=== PATIENT | female | born 1960 | race Caucasian/White ===

== ENCOUNTER 2017-06-12 17:18 | Observation (INO) ==
[2017-06-12] MEDS ORDERED: ASPIRIN 81 MG CHEWABLE TABLET PO ONE (17:37)
[2017-06-12] MEDS ORDERED: SALINE FLUSH 10ml SYRINGE IVF PRN (17:37)
--- OUTSIDE RECORDS SUMMARY | 2017-06-12 17:44 | External Medical Summary ---
:1960 [facility] Organization [facility] Address [address] [place] [address] Care Team Providers Name Role Phone KATHERINE HERNANDEZ Primary Care Physician Unavailable Encounter [facility] [id number] Date(s): 08/23/15 - 08/23/15 [facility] [address] [place] [id number] Discharge Disposition: Home Attending Physician: LUPILLO Ventura MD Admitting Physician: LUPILLO Ventura MD Referring Physician: [id number] -KATHERINE HERNANDEZ Vital Signs No data available for this section Problem List Diagnosis Diagnosis Type Effective Dates Health Clinical Informant Status Service Osteoarthritis of Discharge 08/23/15 Non-Specified basilar joint of Diagnosis thumb Injury of Discharge 08/23/15 Non-Specified intermetacarpal Diagnosis ligament of right hand Allergies, Adverse Reactions, Alerts Substance Reaction Severity Status amoxicillin mouth sores, rash Active Rash Demerol HCl Nausea or vomiting Active Dilaudid Rash Active Lortab Nausea or vomiting Active morphine Rash Active Fever Stadol Nausea or vomiting Active sulfa drugs Nausea or vomiting Active traMADol Nausea or vomiting Active Medications No Known Medications Results No data available for this section Immunizations No data available for this section Procedures Procedure Date Related Diagnosis Body Site Trapeziectomy Arthroplasty Suture Suspension 08/23/15 Right Thumb Carpometacarpal partial hysterectomy - required blood transfusion 2010 after cervical fusion 2009 diag lap for ovarian cysts x 5 1987 was last 1987 surgery x 3 Social History No data available for this section Assessment and Plan No data available for this section
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
--- OUTSIDE RECORDS SUMMARY | 2017-06-12 17:44 | External Medical Summary | Continuity of Care Document ---
:1960 Author Organization [facility] Care Team Providers Name Role Phone [employer] Unavailable Unavailable Problems Problem Status Onset Classification Date Comments Source Date Reported Osteoarthrosis of 08/23/19 Diagnosis 08/27/2015 [place] the carpometacarpal 16 Medical joint of the thumb [place], (disorder) Inc[facility] Injury of ligament 08/23/19 Diagnosis 08/27/2015 [place] of hand (disorder) [address] [place] [address], Inc. Medications Medication Details Route Status Patient Ordering Order Source Instructions Provider Date No Known No known Active [place] Medications medications [facility] Allergies, Adverse Reactions, Alerts Substance Category Reaction Severity Reaction Status Date Comments Source type Reported Amoxicillin Assertion mouth Drug [place] sores, allergy Medical rash, [place], Rash Inc[facility] Meperidine Assertion Nausea or Drug [place] vomiting [facility] Hydromorphone Assertion Rash Drug [place] [facility] Acetaminophen / Assertion Nausea or Drug [place] Hydrocodone vomiting [facility] Morphine Assertion Rash, Drug [place] Fever [facility] Butorphanol Assertion Nausea or Drug [place] vomiting [facility] sulfa drugs Assertion Nausea or Drug [place] vomiting [facility] Tramadol Assertion Nausea or Drug [place] vomiting [facility] Encounters Location Location Encounter Encounter Reason Attending ADM DC Status Source Details Type Number For Provider Date Date Visit [facility] [id number] Amb Surgery [id number] LUPILLO [place] 08/22 08/22 Active [place] /2015 [facility] [place] [facility] [id number] KATHERINE 08/22 08/23 [place] Medical Surgery HERNANDEZ /2015 [facility] Inc[facility] Procedures Procedure Code Date Perfomer Comments Source Trapeziectomy 08/23/2015 [place] Arthroplasty Suture Medical Suspension Right Thumb [place] Carpometacarpal partial hysterectomy - 05/05/2010 [place] required blood Medical transfusion after [place] cervical fusion 05/05/2009 [facility] diag lap for ovarian 05/05/1987 [place] cysts x 5 1988 was Medical [email or web address] surgery [place], [facility]. x 3 [facility].
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
--- OUTSIDE RECORDS SUMMARY | 2017-06-12 17:46 | External Medical Summary | Continuity of Care Document ---
:1960 Author Organization [facility] Allergies Active Description Code Type Severity Reaction Onset Reported/ Identified Relationship Clinical to Patient Status Yes AMOXICILLIN 92424 Drug N/A N/A 18891 Aller 1 gy Yes DEMEROL 12287 Drug N/A N/A 40639 Aller 2 gy Yes DILAUDID 73512 Drug N/A N/A 23121 Aller 0 gy Yes LORTAB 21959 Drug N/A N/A 64798 Aller 6 gy Yes MORPHINE 70829 Drug N/A N/A SULFATE 12598 Aller 0 gy Yes STADOL 95841 Drug N/A N/A Aller gy Yes SULFA Drug N/A N/A Aller gy [place] TRAMADOL HCL 01637 Drug N/A N/A Aller gy Medications There is no data. Problems There is no data. Procedures There is no data. Results There is no data. Encounters ACCT No. Visit Discharge Status Pt. Type Provider Facility Loc./Unit Complaint Date/Time [id number] 07/06/2013 07/06/2013 CLS Outpatient 10:03:00 23:59:59 [id number] 03/31/2013 03/31/2013 CLS Outpatient 08:59:00 23:59:59 [id number] 05/27/2017 05/27/2017 DIS Outpatient [id number] 10:46:35 10:46:35 [id number] 04/08/2017 04/08/2017 CLS Outpatient [id number] 08:09:09 23:59:59 [id number] 04/07/2017 04/07/2017 DIS Outpatient [id number] 09:21:07 09:21:07 [id number] 04/07/2017 04/07/2017 DIS Outpatient [id number] 09:17:27 09:17:27 [id number] 04/07/2017 04/07/2017 DIS Outpatient [id number] 08:54:02 08:54:02 [id number] 04/07/2017 04/07/2017 DIS Outpatient [id number] 07:51:23 07:51:23 [id number] 04/07/2017 04/07/2017 DIS Outpatient [id number] 07:49:46 07:49:46 [id number] 04/07/2017 04/07/2017 DIS Outpatient [id number] 07:49:45 07:49:45 [id number] 04/07/2017 04/07/2017 DIS Outpatient [id number] 07:49:32 07:49:32 [id number] 04/07/2017 04/07/2017 DIS Outpatient [id number] 07:48:03 07:48:03 [id number] 04/07/2017 04/07/2017 DIS Outpatient [id number] 07:47:47 07:47:47 [id number] 04/07/2017 04/07/2017 DIS Outpatient [id number] 07:46:19 07:46:19 [id number] 04/07/2017 04/07/2017 DIS Outpatient [id number] 07:39:19 07:39:19 [id number] 04/07/2017 04/07/2017 DIS Outpatient [id number] 07:37:52 07:37:52 [id number] 04/07/2017 04/07/2017 DIS Outpatient [id number] 07:35:46 07:35:46 [id number] 04/07/2017 04/07/2017 DIS Outpatient [id number] 07:34:12 07:34:12 [id number] 04/07/2017 04/07/2017 DIS Outpatient [id number] 07:34:11 07:34:11 [id number] 03/31/2017 03/31/2017 DIS Outpatient [id number] 15:30:51 15:30:51 [id number] 03/31/2017 03/31/2017 DIS Outpatient [id number] 15:30:34 15:30:34 [id number] 03/31/2017 03/31/2017 DIS Outpatient [id number] 14:45:24 14:45:24 [id number] 03/31/2017 03/31/2017 DIS Outpatient [id number] 14:45:09 14:45:09 [id number] 03/25/2017 03/25/2017 CLS Outpatient [id number] 15:29:08 23:59:59 [id number] 03/25/2017 03/25/2017 CLS Outpatient [id number] 15:28:55 23:59:59 [id number] 03/25/2017 03/25/2017 CLS Outpatient [id number] 15:27:16 23:59:59 [id number] 03/25/2017 03/25/2017 CLS Outpatient [id number] 15:26:55 23:59:59 [id number] 04/07/2017 Document [id number] 07:50:00 Registration 0750
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
[2017-06-12] MEDS: NITROGLYCERIN 0.4 MG SUBLINGUAL TABLET SL PRN ×2 (17:51→17:56)
[2017-06-12] MEDS ORDERED: NS 1,000 ML IV ONE (18:13)
--- NOTE | 2017-06-12 19:00 | Emergency Department Report ---
Chest Pain HPI - General Chief Complaint: Chest Pain Stated Complaint: cp, uncomfotable feeling in stomach Time Seen by Provider: 06/12/17 17:37 Source: patient Limitations: no limitations - History of Present Illness HPI narrative: patient is a 56 yr old female who presents to the emergency room today for evaluation of acute chest pain with radiation. Patient states that she has had upper respiratory infection and coughing intermittently for the past 2 months. She reports over the past few days she has had increasing substernal chest pain that radiates up into the right jaw, and right shoulder. At times this pain is severe in nature and wakes her up from sleep. She does report that when the pain radiates into the arm. It causes her right arm to feel numb. He also reports having epigastric pain accompanied with nausea. It is a dull ache. To be tachycardic on examination at 111, afebrile. Chest pressure rated 7-8 out of 10 initially. MD complaint: chest pain Occurred At: home Onset (ago): day(s) Duration: intermittent Onset: during rest Pain location: epigastric Severity: moderate Severity scale (1-10): 8 Quality: tightness, heaviness Pain radiation: RUE Relieving factors: nitroglycerin Exacerbating factors: nothing Context: recent illness Associated symptoms: nausea, vomiting Aspirin Today: provided by ED Nitro Today: provided by ED Treatments prior to arrival chest pain: none - Related Data Home Medications Medication Instructions Recorded Confirmed SUMAtriptan succinate [Sumatriptan 100 mg PO PRN PRN #0 10/18/11 06/12/17 Succinate] Claritin (Loratadine) 10 mg tablet 10 mg PO Q24H 12/02/16 06/12/17 Glucophage (metformin) 500 mg 500 mg PO .QD tab 12/02/16 06/12/17 tablet liothyronine 5 mcg tablet 10 mcg PO .QD tab 12/02/16 06/12/17 sumatriptan 4 mg/0.5 mL 3 mg SQ Q1H PRN 12/02/16 06/12/17 subcutaneous pen injector ALPRAZolam [Xanax 0.25 mg] 0.125 mg PO Q8HR 06/12/17 06/12/17 Fluticasone Nasal [place] [Flonase] 1 spray EA NOSTRIL PRN 06/12/17 06/12/17 Levothyroxine Tab [Synthroid] 100 mcg PO ACB 06/12/17 06/12/17 Naproxen [Naprosyn] 500 mg PO Q6HR 06/12/17 06/12/17 Zonisamide [Zonegran] 100 mg PO DAILY 06/12/17 06/12/17 Previous Rx's Medication Instructions Recorded Albuterol Sulfate [Proair Hfa] 1 puff INH Q4H PRN 14 Days #1 06/26/16 inhaler Allergies Allergy/AdvReac Type Severity Reaction Status Date / Time acetaminophen [From Lortab] Allergy Verified 05/01/17 18:56 amoxicillin Allergy Verified 05/01/17 18:56 butorphanol [From Stadol] Allergy Verified 05/01/17 18:56 hydrocodone [From Lortab] Allergy Verified 05/01/17 18:56 hydromorphone [From Dilaudid] Allergy Verified 05/01/17 18:56 Sulfa (Sulfonamide Allergy Verified 05/01/17 18:56 Antibiotics) tramadol Allergy Verified 05/01/17 18:56 demoral Allergy Uncoded 05/01/17 18:56 morphone Allergy Uncoded 05/01/17 18:56 Review of Systems All systems: reviewed and negative except as stated Cardiovascular: Reports: chest pain PFSH Patient Stated Medical History Migraine Yes Other HEENT Yes: inner ear crystals get off-balanced Bronchitis Yes: hx Gastroesophageal Reflux Yes Disease Hiatal Hernia Yes Hx Urinary Tract Infection Yes: hx Depression Yes Clinic Medical History (Last Reviewed 05/01/17 @ 18:44 by Chani Carrillo LPN) GERD (gastroesophageal reflux disease) (Chronic Medical) Leatha's disease (Chronic Medical) Hormone replacement therapy (HRT) (Chronic Medical) Migraine (Chronic Medical) UTI (urinary tract infection) (Chronic Medical) "Pre-Diabetes" Anxiety Surgical History: * X3. *Cervical C4,5. *Right thumb joint. * Partial Hysterectomy. *Ovarian cyst Family History: Family History (Last Reviewed 05/01/17 @ 18:45 by Chani Carrillo LPN) Father , [place] related, age 76 Brain tumor Mother Smoker COPD (chronic obstructive pulmonary disease) - Social History Smoking status: Never smoker Substance use type: does not use Alcohol intake frequency: does not drink Housing: house Household members: spouse Social history: PCP Dr Guzman Physical Exam - Limitations Limitations: no limitations - Normal Exams: Head:: Normocephalic without trauma Eyes:: Pupils are PERRLA w/ EOMI Neck:: Full range of motion Chest/Respirations:: Clear all forman Cardiovascular:: Regular rate and rhythm, Pulses 2+ all extremities Abdomen:: Bowel sounds positive - Abdominal Exam Abdominal exam: Present: tenderness (the gastric) Course Vital Signs Temperature 98.1 F 06/12/17 17:20 Pulse Rate 106 H 06/12/17 17:20 Respiratory Rate 20 06/12/17 17:20 Blood Pressure 173/97 H 06/12/17 17:20 Pulse Oximetry 97 06/12/17 17:20 Temperature 98.1 F 06/12/17 17:20 Pulse Rate 103 H 06/12/17 18:00 Respiratory Rate 20 06/12/17 17:20 Blood Pressure 111/70 06/12/17 18:00 Pulse Oximetry 97 06/12/17 17:20 Chest Pain - [facility] Narrative Medical decision making narrative: 1839- Spoke with Jill Cronin APRN with Dr Christina. Stressed history, present illness, overall cardiac concerns. She agrees and accepts patient for outpatient observation for serial troponins and further cardiac rule out. Chest pain, decreased to 1/10 following nitroglycerin. Blood pressure dropped approximately 50-60 points systolic. All labs, x-ray and EKG. Overall concerned with chest pain with radiation. She is agreement to be admitted for further workup - Medical Records Data Attestation: I reviewed the patient's medical records. - Lab Data Attestation: I reviewed the patient's lab results. Result diagrams: 06/12/17 17:46 06/12/17 17:46 Lab Results 06/12/17 06/12/17 Range/Units 17:46 17:46 WBC 7.9 (4.5-11.0) T/MM3 RBC 5.08 (4.00-5.20) M/MM3 Hgb 14.4 (12-16) GM/DL Hct 42.8 (36-46) % MCV 84.3 (80-100) UM3 MCH 28.3 (26-34) UUG MCHC 33.6 (31-37) GM/DL RDW Std Deviation 42.0 (36.9-50.2) FL Plt Count 292 (130-400) T/MM3 MPV 10.8 (9.4-12.4) UM3 Immature Gran % (Auto) 0.1 (0.0-0.5) % Neut % (Auto) 53.0 (33-66) % Lymph % (Auto) 31.9 (23-45) % [place] % (Auto) 9.1 H (0-9.0) % Eos % (Auto) 5.1 H (0-4) % Baso % (Auto) 0.8 (0-2) % Neut # (Auto) 4.2 (1.8-7.7) T/MM3 Lymph # (Auto) 2.5 (1-4.8) T/MM3 [place] # (Auto) 0.7 (0-0.8) T/MM3 Eos # (Auto) 0.4 (0-0.5) T/MM3 Baso # (Auto) 0.1 (0-0.2) T/MM3 Abs Immat Gran (auto) 0.01 (0.00-0.03) T/MM3 Turbidity < 20 (0-20) Sodium 145 H (134-144) MEQ/L Potassium 4.2 (3.6-5) MEQ/L Chloride 108 H (98-107) MEQ/L Carbon Dioxide 24 (22-30) MEQ/L Anion Gap 13 (5-15) MEQ/L BUN 18.0 H (7-17) MG/DL Creatinine 0.7 (0.7-1.2) MG/DL GFR Calculation 87 BUN/Creatinine Ratio 26 (6-26) RATIO Glucose 116 H (65-110) MG/DL Calculated Osmolality 282 H (261-280) MOSM/KG Calcium 10.0 (8.4-10.2) MG/DL Icterus Index < 2 (0-7) Troponin I < 0.012 (0-0.12) ng/ml B-Natriuretic Peptide 30.1 (0-175) pg/mL Specimen Hemolysis 21 (0-25) Disposition Clinical Impression: Chest pain Qualifiers: Chest pain type: chest pain due to myocardial ischemia Ischemic chest pain type : unspecified angina pectoris type Qualified Code(s): I20.9 - Angina pectoris, unspecified Disposition[place] [facility] [place]: Stable Prescriptions: No Action SUMAtriptan succinate [Sumatriptan Succinate] 100 mg PO PRN PRN #0 PRN Reason: Migraine Headache Levothyroxine Tab [Synthroid] 100 mcg PO ACB ALPRAZolam [Xanax 0.25 mg] 0.125 mg PO Q8HR Albuterol Sulfate [Proair Hfa] 1 puff INH Q4H PRN 14 Days #1 inhaler PRN Reason: WHEEZING Naproxen [Naprosyn] 500 mg PO Q6HR Fluticasone Nasal [place] [Flonase] 1 spray EA NOSTRIL PRN Zonisamide [Zonegran] 100 mg PO DAILY sumatriptan 4 mg/0.5 mL subcutaneous pen injector 3 mg SQ Q1H PRN PRN Reason: Migraine Headache liothyronine 5 mcg tablet 10 mcg PO .QD tab Claritin (Loratadine) 10 mg tablet 10 mg PO Q24H Glucophage (metformin) 500 mg tablet 500 mg PO .QD tab Referrals: Bg Guzman DO [Family Provider] - Time of Disposition: 18:40 - Seen By: mychal
[2017-06-12 19:49] VITALS: BMI 25.5
[2017-06-12] MEDS ORDERED: FLUTICASONE NASAL SPRAY 50mcg EA NOSTRIL SCH (20:00)
[2017-06-12] MEDS ORDERED: LORATADINE 10 MG TABLET PO SCH (20:00)
[2017-06-13] MEDS: ALPRAZolam 0.25 MG TABLET PO SCH ×2 (00:25→08:45)
[2017-06-13] MEDS: LIOTHYRONINE 5 MCG TABLET PO SCH ×2 (06:11→08:43)
[2017-06-13] MEDS ORDERED: LEVOTHYROXINE 100 MCG TABLET PO SCH (06:30)
[2017-06-13 07:27] VITALS: BP 109/92; RESP 16; TEMP 98.3; O2SAT 96
--- NOTE | 2017-06-13 08:00 | XRay Report ---
INDICATION: chest pain, coughing PROCEDURE: CHEST 2-VIEWS UPRIGHT (PA & LAT) Encounter: Initial COMPARISON: None FINDINGS: The lungs are clear without evidence of focal abnormal airspace opacity. There is no pleural effusion or pneumothorax. The heart size, mediastinal contours and pulmonary vascularity are within normal limits. Cervical spine fusion hardware. IMPRESSION: No acute cardiopulmonary disease. .
[2017-06-13] MEDS ORDERED: ASPIRIN 81 MG CHEWABLE TABLET PO SCH (09:00)
[2017-06-13] MEDS ORDERED: ZONISAMIDE 100 MG CAPSULE PO SCH (09:00)
--- NOTE | 2017-06-13 10:25 | Cardiology History & Physical ---
History of Present Illness Chief complaint: chest pain HPI: Alma Delia is a 56 year old female who denies cardiac disease but has a history of HLD and DM type II who presented to the ED for evaluation of acute chest pain with radiation. She states that she has had upper respiratory infection and coughing intermittently for the past 2 months. She reports over the past few days she has had increasing substernal chest pain that radiates up into the right jaw, and right shoulder. At times this pain is severe in nature and wakes her up from sleep. She does report that when the pain radiates into the arm. It causes her right arm to feel numb. He also reports having epigastric pain accompanied with nausea. It is a dull ache. Due to her risk factors Dr. Christina was contacted for admission for further evaluation. On exam Alma Delia reports chest pressure and epigastric pain which goes through into her back. She has frequent dry non productive cough remaining from Influenza infection weeks ago. She denies fever, chills, sore throat, palpitations or racing heart beat, N/V/D. Review of Systems - Constitutional Constitutional: Present: as per HPI. Absent: chills, fever(s) - EENMT Eyes: Absent: change in vision Balance: Absent: vertigo Mouth/Throat: Absent: sore throat - Cardiovascular Cardiovascular: Present: chest pain, dyspnea on exertion. Absent: palpitations , syncope, orthopnea, edema, heart murmur Rhythm: Absent: abnormal rhythm Vascular: Absent: pedal edema - Respiratory Respiratory: Present: cough, dyspnea on exertion, chest congestion. Absent: dyspnea - Gastrointestinal Gastrointestinal: Present: as per HPI, abdominal pain, nausea. Absent: diarrhea , vomiting - Genitourinary Genitourinary: Absent: dysuria - Integumentary/Breasts Integumentary: Absent: rash - Neurological Neurological: Absent: dizziness - Endocrine Endocrine: Absent: palpitations PFSH Patient Stated Medical History Migraine Yes Other HEENT Yes: inner ear crystals get off-balanced Other Cardiology Yes: mitral valve prolapse Bronchitis Yes: hx Gastroesophageal Reflux Yes Disease Hiatal Hernia Yes Hx Urinary Tract Infection Yes: hx Other Musculoskeletal Yes: arthritis in hands Blood Transfusions Yes: prior to hysterectomy Depression Yes Fibroids Yes Menorrhagia Yes Clinic Medical History (Last Reviewed 05/01/17 @ 18:44 by Chain J Gerardo , LICENSED PSYCHIATRIC TECHNICIAN) GERD (gastroesophageal reflux disease) (Chronic Medical) Leatha's disease (Chronic Medical) Hormone replacement therapy (HRT) (Chronic Medical) Migraine (Chronic Medical) UTI (urinary tract infection) (Chronic Medical) Surgical History: * X3. *Cervical C4,5. *Right thumb joint. * Partial Hysterectomy. *Ovarian cyst Family History: Family History (Last Reviewed 05/01/17 @ 18:45 by Chani Carrillo LPN) Father , [place] related, age 76 Brain tumor Mother Smoker COPD (chronic obstructive pulmonary disease) - Social History Smoking status: Never smoker Substance use type: does not use Alcohol intake frequency: does not drink Housing: house Household members: spouse Current occupational status: unemployed Current residence: Apartment/Private Home Medications Home Medications Medication Instructions Recorded Confirmed Type SUMAtriptan succinate [Sumatriptan 100 mg PO PRN PRN #0 10/18/11 06/12/17 History Succinate] Claritin (Loratadine) 10 mg tablet 10 mg PO Q24H 12/02/16 06/12/17 History Glucophage (metformin) 500 mg 500 mg PO .QD tab 12/02/16 06/12/17 History tablet liothyronine 5 mcg tablet 10 mcg PO .QD tab 12/02/16 06/12/17 History sumatriptan 4 mg/0.5 mL 3 mg SQ Q1H PRN 12/02/16 06/12/17 History subcutaneous pen injector ALPRAZolam [Xanax 0.25 mg] 0.125 mg PO Q8HR 06/12/17 06/12/17 History Fluticasone Nasal [place] [Flonase] 1 spray EA NOSTRIL PRN 06/12/17 06/12/17 History Levothyroxine Tab [Synthroid] 100 mcg PO ACB 06/12/17 06/12/17 History Naproxen [Naprosyn] 500 mg PO Q6HR 06/12/17 06/12/17 History Zonisamide [Zonegran] 100 mg PO DAILY 06/12/17 06/12/17 History Allergies Allergy/AdvReac Type Severity Reaction Status Date / Time acetaminophen [From Lortab] Allergy Verified 06/13/17 06:06 amoxicillin Allergy Verified 06/13/17 06:06 butorphanol [From Stadol] Allergy Verified 06/13/17 06:06 hydrocodone [From Lortab] Allergy Verified 06/13/17 06:06 hydromorphone [From Dilaudid] Allergy Verified 06/13/17 06:06 Sulfa (Sulfonamide Allergy Verified 06/13/17 06:06 Antibiotics) tramadol Allergy Verified 06/13/17 06:06 demoral Allergy Uncoded 06/13/17 06:06 morphone Allergy Uncoded 06/13/17 06:06 Exam Vital signs: Temperature 98.3 F 06/13/17 07:26 Pulse Rate 83 06/13/17 08:11 Respiratory Rate 16 06/13/17 07:26 Blood Pressure 109/92 H 06/13/17 07:26 Pulse Oximetry 96 06/13/17 07:26 - Constitutional no acute distress, well nourished, cooperative - Routine HEENT Exam Head: Present: normocephalic ENT: Present: mucous membranes moist - Routine Neck Exam Absent: JVD, carotid bruit - Routine Chest/Breast/Axilla Exam Chest wall: Absent: tenderness - Routine Respiratory Exam Present: CTA bilaterally. Absent: rales, wheezes - Routine Cardiovascular Exam Present: RRR, no murmur - Routine Abdominal Exam Present: soft, normoactive bowel sounds, tenderness - Routine Extremities Exam Present: no edema - Routine Skin Exam Present: intact, dry, warm - Routine Neurological Exam Present: alert, oriented X3 - Routine Psychiatric Exam Present: normal affect, normal thought process Results 06/13/17 04:06 06/13/17 04:06 Cardiac Enzymes 06/12/17 Range/Units 23:57 Troponin I < 0.012 (0-0.12) ng/ml Lipids 06/13/17 Range/Units 04:06 Triglycerides 88 (35-135) MG/DL Cholesterol 179 (132-199) MG/DL HDL Cholesterol 40 (40-60) MG/DL Cholesterol/HDL Ratio 4.5 H (0-4.0) RATIO CBC 06/13/17 Range/Units 04:06 WBC 5.7 (4.5-11.0) T/MM3 RBC 4.34 (4.00-5.20) M/MM3 Hgb 12.5 D (12-16) GM/DL Hct 37.0 D (36-46) % Plt Count 226 (130-400) T/MM3 Neut # (Auto) 2.7 (1.8-7.7) T/MM3 Lymph # (Auto) 2.1 (1-4.8) T/MM3 Price # (Auto) 0.6 (0-0.8) T/MM3 Eos # (Auto) 0.4 (0-0.5) T/MM3 Baso # (Auto) 0.0 (0-0.2) T/MM3 Comprehensive Metabolic Panel 06/13/17 Range/Units 04:06 Sodium 143 (134-144) MEQ/L Potassium 3.9 (3.6-5) MEQ/L Chloride 112 H (98-107) MEQ/L Carbon Dioxide 23 (22-30) MEQ/L BUN 14.0 (7-17) MG/DL Creatinine 0.7 (0.7-1.2) MG/DL Glucose 98 (65-110) MG/DL Calcium 9.2 (8.4-10.2) MG/DL Intake and Output 06/12/17 06/13/17 06/13/17 22:59 06:59 14:59 Intake Total 1000 / 1000 Balance 1000 / 1000 Intake: IV 1000 / 1000 Ns 1,000 ml @ 999.9 mls/hr IV . 1000 / 1000 Q1H ONE Rx#:[id number] Other: # Voids 1 Weight 139 lb 12.369 oz 134 lb 7.712 oz Patient Weight 06/14/17 06:59 Weight 134 lb 7.712 oz - Imaging and Cardiology EKG results: image reviewed Imaging & Cardiology Narrative: Date of Exam: 06/12/17 Ordering Provider: Bobbi Orozco APRN Type of Exam(s): XR chest 2V Reason for Exam(s): chest pain, coughing INDICATION: chest pain, coughing PROCEDURE: CHEST 2-VIEWS UPRIGHT (PA & LAT) Encounter: Initial COMPARISON: None FINDINGS: The lungs are clear without evidence of focal abnormal airspace opacity. There is no pleural effusion or pneumothorax. The heart size, mediastinal contours and pulmonary vascularity are within normal limits. Cervical spine fusion hardware. IMPRESSION: No acute cardiopulmonary disease. 06/13/17 10:27 06/13/17 14:31 Date of Exam: 06/13/17 Ordering Provider: Saumya Cain APRN Type of Exam(s): US gall bladder Reason for Exam(s): chest/ abd pain Indication: chest/ abd pain PROCEDURE: US gall bladder: Encounter: Initial Comparison: None Technique: Grayscale and color Doppler sonographic imaging of the right upper quadrant of the abdomen was performed. Findings: Hepatic parenchyma is homogeneous without evidence for focal mass. The gallbladder is normal. There is no wall thickening, pericholecystic fluid, sonographic Stover's sign or cholelithiasis. Both the intra and extrahepatic biliary system are of normal caliber with the common duct measuring 3 mm in dimension. Visualized portions of the head and body of the pancreas are unremarkable. The right kidney is present without collecting system dilatation. The right kidney measures 10.7 cm in length. Impression: Normal right upper quadrant sonogram. EKG interpretations - EKG EKG results cardiology: sinus rhythm Hospital Course This is a general summary of the patient's hospital course. For more details refer to the complete medical record. Time spent with patient: 25 - 35 minutes Resuscitation Status: Full Code Assessment and Plan - Attestation Attestation Narrative: 06/17/17 08:00 Recommendation After examining the patient I agree with the above assessment. I am involved in the formulation of the patient's plan of care. - Assessment and Plan (1) Chest pain Status: Acute Chest "pressure" with "stomach pain and nausea" - radiates to right side of neck and jaw as well as right shoulder - EKG without ischemic changes - Serial troponin negative. - Will plan outpatient stress test for further evaluation but not likely ischemic pain (2) Epigastric abdominal pain Status: Acute Gallbladder sonogram to rule out cholelithiasis (3) Diabetes type 2, controlled Status: Chronic (4) Mixed hyperlipidemia Status: Chronic
--- NOTE | 2017-06-13 11:53 | Ultrasound Report ---
Indication: chest/ abd pain PROCEDURE: US gall bladder: Encounter: Initial Comparison: None Technique: Grayscale and color Doppler sonographic imaging of the right upper quadrant of the abdomen was performed. Findings: Hepatic parenchyma is homogeneous without evidence for focal mass. The gallbladder is normal. There is no wall thickening, pericholecystic fluid, sonographic Stover's sign or cholelithiasis. Both the intra and extrahepatic biliary system are of normal caliber with the common duct measuring 3 mm in dimension. Visualized portions of the head and body of the pancreas are unremarkable. The right kidney is present without collecting system dilatation. The right kidney measures 10.7 cm in length. Impression: Normal right upper quadrant sonogram. .
--- NOTE | 2017-06-13 14:38 | Discharge Summary ---
<Saumya Cain - Last Filed: 06/13/17 14:35> Discharge Information Date of admission: 06/12/17 19:00 Anticipated date of discharge: 06/13/17 Attending Physician: Xavier Christina MD Primary care physician: Bg Guzman DO - Discharge Diagnosis (1) Chest pain Status: Acute (2) Epigastric abdominal pain Status: Acute (3) Diabetes type 2, controlled Status: Chronic (4) Mixed hyperlipidemia Status: Chronic atypical chest pain - Laboratory Labs: 06/13/17 04:06 06/13/17 04:06 History of Present Illness HPI: Alma Delia is a 56 year old female who denies cardiac disease but has a history of HLD and DM type II who presented to the ED for evaluation of acute chest pain with radiation. She states that she has had upper respiratory infection and coughing intermittently for the past 2 months. She reports over the past few days she has had increasing substernal chest pain that radiates up into the right jaw, and right shoulder. At times this pain is severe in nature and wakes her up from sleep. She does report that when the pain radiates into the arm. It causes her right arm to feel numb. He also reports having epigastric pain accompanied with nausea. It is a dull ache. Due to her risk factors Dr. Christina was contacted for admission for further evaluation. On exam Alma Delia reports chest pressure and epigastric pain which goes through into her back. She has frequent dry non productive cough remaining from Influenza infection weeks ago. She denies fever, chills, sore throat, palpitations or racing heart beat, N/V/D. Hospital Course This is a general summary of the patient's hospital course. For more details refer to the complete medical record. Hospital course: Chest "pressure" with "stomach pain and nausea" - radiates to right side of neck and jaw as well as right shoulder - EKG without ischemic changes - Serial troponin negative. - Will plan outpatient stress test for further evaluation but not likely ischemic pain Time spent with patient: 25 - 35 minutes Resuscitation Status: Full Code Exam Vital signs: Temperature 98.3 F 06/13/17 07:26 Pulse Rate 83 06/13/17 08:11 Respiratory Rate 16 06/13/17 07:26 Blood Pressure 109/92 H 06/13/17 07:26 Pulse Oximetry 96 06/13/17 07:26 - Constitutional no acute distress, well nourished, cooperative - Routine HEENT Exam Head: Present: normocephalic ENT: Present: mucous membranes moist - Routine Neck Exam Absent: JVD, carotid bruit - Routine Chest/Breast/Axilla Exam Chest wall: Absent: tenderness - Routine Respiratory Exam Present: CTA bilaterally. Absent: rales, wheezes - Routine Cardiovascular Exam Present: RRR, no murmur - Routine Abdominal Exam Present: soft, normoactive bowel sounds - Routine Extremities Exam Present: no edema - Routine Skin Exam Present: intact, dry, warm - Routine Neurological Exam Present: alert, oriented X3 - Routine Psychiatric Exam Present: normal affect, normal thought process Results 06/13/17 04:06 06/13/17 04:06 Cardiac Enzymes 06/12/17 Range/Units 23:57 Troponin I < 0.012 (0-0.12) ng/ml Lipids 06/13/17 Range/Units 04:06 Triglycerides 88 (35-135) MG/DL Cholesterol 179 (132-199) MG/DL HDL Cholesterol 40 (40-60) MG/DL Cholesterol/HDL Ratio 4.5 H (0-4.0) RATIO CBC 06/13/17 Range/Units 04:06 WBC 5.7 (4.5-11.0) T/MM3 RBC 4.34 (4.00-5.20) M/MM3 Hgb 12.5 D (12-16) GM/DL Hct 37.0 D (36-46) % Plt Count 226 (130-400) T/MM3 Neut # (Auto) 2.7 (1.8-7.7) T/MM3 Lymph # (Auto) 2.1 (1-4.8) T/MM3 [place] # (Auto) 0.6 (0-0.8) T/MM3 Eos # (Auto) 0.4 (0-0.5) T/MM3 Baso # (Auto) 0.0 (0-0.2) T/MM3 Comprehensive Metabolic Panel 06/13/17 Range/Units 04:06 Sodium 143 (134-144) MEQ/L Potassium 3.9 (3.6-5) MEQ/L Chloride 112 H (98-107) MEQ/L Carbon Dioxide 23 (22-30) MEQ/L BUN 14.0 (7-17) MG/DL Creatinine 0.7 (0.7-1.2) MG/DL Glucose 98 (65-110) MG/DL Calcium 9.2 (8.4-10.2) MG/DL Intake and Output 06/12/17 06/13/17 06/13/17 22:59 06:59 14:59 Intake Total 1000 / 1000 Balance 1000 / 1000 Intake: IV 1000 / 1000 Ns 1,000 ml @ 999.9 mls/hr IV . 1000 / 1000 Q1H ONE Rx#:[id number] Other: # Voids 1 Weight 139 lb 12.369 oz 134 lb 7.712 oz Patient Weight 06/14/17 06:59 Weight 134 lb 7.712 oz - Imaging and Cardiology Imaging & Cardiology Narrative: Date of Exam: 06/12/17 Ordering Provider: Bobbi Orozco APRN Type of Exam(s): XR chest 2V Reason for Exam(s): chest pain, coughing INDICATION: chest pain, coughing PROCEDURE: CHEST 2-VIEWS UPRIGHT (PA & LAT) Encounter: Initial COMPARISON: None FINDINGS: The lungs are clear without evidence of focal abnormal airspace opacity. There is no pleural effusion or pneumothorax. The heart size, mediastinal contours and pulmonary vascularity are within normal limits. Cervical spine fusion hardware. IMPRESSION: No acute cardiopulmonary disease. 06/13/17 14:36 06/13/17 14:36 Date of Exam: 06/13/17 Ordering Provider: Saumya Cain APRN Type of Exam(s): US gall bladder Reason for Exam(s): chest/ abd pain Indication: chest/ abd pain PROCEDURE: US gall bladder: Encounter: Initial Comparison: None Technique: Grayscale and color Doppler sonographic imaging of the right upper quadrant of the abdomen was performed. Findings: Hepatic parenchyma is homogeneous without evidence for focal mass. The gallbladder is normal. There is no wall thickening, pericholecystic fluid, sonographic Stover's sign or cholelithiasis. Both the intra and extrahepatic biliary system are of normal caliber with the common duct measuring 3 mm in dimension. Visualized portions of the head and body of the pancreas are unremarkable. The right kidney is present without collecting system dilatation. The right kidney measures 10.7 cm in length. Impression: Normal right upper quadrant sonogram. . - EKG Interpretation EKG: WNL, sinus rhythm Discharge Plan - Med Rec/Dispo Referrals/Follow Up: Xavier Christina MD [Physician] - 06/25/17 10:10 am [place] Instructions: Angina (DC) Prescriptions: New Aspirin Chewable [ASA] 81 mg PO DAILY #30 tab.chew Omeprazole [Prilosec] 20 mg PO ACBID #60 cap Continue SUMAtriptan succinate [Sumatriptan Succinate] 100 mg PO PRN PRN #0 PRN Reason: Migraine Headache Levothyroxine Tab [Synthroid] 100 mcg PO ACB ALPRAZolam [Xanax 0.25 mg] 0.125 mg PO Q8HR Albuterol Sulfate [Proair Hfa] 1 puff INH Q4H PRN 14 Days #1 inhaler PRN Reason: WHEEZING Naproxen [Naprosyn] 500 mg PO Q6HR Fluticasone Nasal [place] [Flonase] 1 spray EA NOSTRIL PRN Zonisamide [Zonegran] 100 mg PO DAILY sumatriptan 4 mg/0.5 mL subcutaneous pen injector 3 mg SQ Q1H PRN PRN Reason: Migraine Headache liothyronine 5 mcg tablet 10 mcg PO .QD tab Claritin (Loratadine) 10 mg tablet 10 mg PO Q24H Glucophage (metformin) 500 mg tablet 500 mg PO .QD tab - Disposition 01 Discharged Home, Self-Care - Dismissal Complete Discharge Instructions are:: Complete <Xavier Christina - Last Filed: 06/17/17 08:13> Discharge Information Date of admission: 06/12/17 19:00 Attending Physician: Xavier Christina MD Primary care physician: Bg Guzman, DO - Discharge Diagnosis (1) Chest pain Status: Acute (2) Epigastric abdominal pain Status: Acute (3) Diabetes type 2, controlled Status: Chronic (4) Mixed hyperlipidemia Status: Chronic - Laboratory Labs: 06/13/17 04:06 06/13/17 04:06 Hospital Course This is a general summary of the patient's hospital course. For more details refer to the complete medical record. Exam Vital signs: Temperature 98.3 F 06/13/17 07:26 Pulse Rate 85 06/13/17 14:51 Respiratory Rate 16 06/13/17 07:26 Blood Pressure 109/92 H 06/13/17 07:26 Pulse Oximetry 96 06/13/17 07:26 Results 06/13/17 04:06 06/13/17 04:06 Attestation Narriative - Attestation Attestation Narrative: 06/17/17 08:13 Recommendation After examining the patient I agree with the above assessment. I am involved in the formulation of the patient's plan of care.
[2017-06-13 14:58] VITALS: PULSE 85
[2017-06-13] MEDS ORDERED: OMEPRAZOLE 20 MG CAPSULE PO SCH (17:00)
== END 2017-06-13 15:40 | disposition home or self-care (01) ==
LOC: ED 17:18 → SRG 17:18
PROVIDERS: ADMIT Internal Medicine Cardiovascular Disease; ATTEND Internal Medicine Cardiovascular Disease